=== PATIENT | male | born 1985 | race Caucasian/White ===

== ENCOUNTER → 2017-08-15 | Outpatient (REF) | payer OTHER | LOC: M LAB REF 16:16 | PROVIDERS: ATTEND Nurse Practitioner Family | DX: R10.84 Generalized abdominal pain (principal); R19.7 Diarrhea, unspecified ==

== ENCOUNTER → 2018-11-24 | Outpatient (REF) | payer OTHER ==
[2018-11-27 00:07] LABS: ENDOMYSIAL ABY IgA Negative (Negative); TISSUE TRANSGLUTAMINASE IgA <2 U/mL (0-3)
== END ==
LOC: M LAB REF 16:28
PROVIDERS: ATTEND Nurse Practitioner Family
DX: K21.9 Gastro-esophageal reflux disease without esophagitis (principal)

== ENCOUNTER → 2018-12-30 | Outpatient (REF) | payer OTHER ==
[2018-12-31 10:30] LABS: INFLUENZA A AMPLIFICATION NEGATIVE (NEGATIVE); INFLUENZA B AMPLIFICATION NEGATIVE (NEGATIVE)
== END ==
LOC: M LAB REF 09:53
PROVIDERS: ATTEND Internal Medicine
DX: R05 Cough (principal)

== ENCOUNTER → 2021-12-07 | Outpatient (REF) | payer OTHER ==
[2021-12-07 17:00] LABS: PERCENT SATURATION 37.9 % (19.7-50.0)
== END ==
LOC: M LAB REF 16:13
PROVIDERS: ATTEND Internal Medicine
DX: R10.13 Epigastric pain (principal)